=== PATIENT | male | born 2005 | race Caucasian/White ===

== ENCOUNTER 2024-03-07 14:17 | Emergency (ER) | payer OTHER ==
[2024-03-07] MEDS: Sodium Chloride 0.9% 10 ML Syringe FLUSH PRN (14:55)
[2024-03-07] MEDS: Sodium Chloride 0.9% 2.5 ML Syringe FLUSH PRN (14:56)
[2024-03-07 15:00] LABS: BASOPHILS ABSOLUTE AUTO 0.06 K/uL (0.00-0.20); EOSINOPHILS ABSOLUTE AUTO 0.46 K/uL (0.00-0.45); EOSINOPHILS PERCENT AUTO 7.4 % (0.0-6.0); HEMATOCRIT 41.5 % (42.0-52.0); HEMOGLOBIN 14.9 g/dL (14.0-18.0); LYMPHOCYTES ABSOLUTE AUTO 2.83 K/uL (1.00-4.80); LYMPHOCYTES PERCENT AUTO 45.8 % (24.0-44.0); MEAN CORPUSCULAR HGB CONC 35.9 g/dL (32.0-36.0); MEAN CORPUSCULAR VOLUME 86.5 fL (83.0-99.0); MEAN PLATELET VOLUME 9.3 fL (9.4-12.4); MONOCYTES ABSOLUTE AUTO 0.53 K/uL (0.00-0.80); MONOCYTES PERCENT AUTO 8.6 % (0.0-8.0); NEUTROPHILS PERCENT AUTO 37.2 % (41.0-71.0); PLATELET COUNT,PLT 262 K/uL (150-400); WHITE BLOOD CELL COUNT,WBC 6.18 K/uL (3.9-11.3)
[2024-03-07 15:36] LABS: A/G RATIO 1.2 (0.9-1.6); BILIRUBIN TOTAL 0.5 mg/dL (0.2-1.0); CALCIUM 8.8 mg/dL (8.5-10.1); CARBON DIOXIDE,CO2 26.1 mmol/L (21.0-32.0); EST CRCL DRUG DOSING (CG) 121.67 mL/min; POTASSIUM,K 4.2 mmol/L (3.5-5.1); PROTEIN TOTAL,TP 7.3 g/dL (6.4-8.2)
[2024-03-07] MEDS: Iopamidol 755 MG/ML 500 ML Multipack Bottle IVPUSH STA (15:59)
[2024-03-07] MEDS: Ibuprofen 600 MG Tab PO ONE (17:34)
== END 2024-03-07 18:47 | disposition home or self-care (01) ==
LOC: MW.ED 14:17
DX: R07.89 Other chest pain (principal)
CPT/HCPCS: 36415; 71045; 71275; 80053; 84484; 85025; 93005; 99285; A9270; J3490; Q9967; 93010; 99284